=== PATIENT | female | born 1930 | race Hispanic/Latino ===

== ENCOUNTER 2016-11-12 07:04 | Emergency (ER) | payer MEDICARE ==
[2016-11-12 07:05] VITALS: BMI 19.5
[2016-11-12 07:28] VITALS: BP 138/92; PULSE 88; RESP 17; TEMP 98; O2SAT 96
--- NOTE | 2016-11-12 07:46 | ED PDOC ---
HPI: Trauma/Fall - HPI Time Seen by Provider: 11/12/16 07:11 Chief Complaint (Nursing): Abdominal Pain Chief Complaint (Provider): Fall History Per: Patient History/Exam Limitations: no limitations Injury Occurred (Timing): Just Before Arrival Location Of Injury: Left: Abdomen, Arm, Face Severity: Mild Additional Complaint(s): Patient is a 86 year old female who presents to ED for evaluation after a fall this morning. Patient states that she was going to the bathroom this morning, slipped and struck her chest. Denies head injury or LOC. States she noticed blood on her chest which prompted ED visit. Patient notes chronic neck pain secondary to her Melanoma treatments. Patient also taking ASA daily. No numbness, tingles, weakness, incontinence, head pain, vision changes, abd pain, back pain, leg pain. Past Medical History Reviewed: Historical Data, Nursing Documentation, Vital Signs Vital Signs: Last Vital Signs Temp 98 F 11/12/16 07:25 Pulse 88 11/12/16 07:25 Resp 17 11/12/16 07:25 BP 138/92 H 11/12/16 07:25 Pulse Ox 96 11/12/16 07:51 - Medical History PMH: Anemia, Arthritis, Back Problems, CAD, Gall Bladder Disease (GALLSTONES), HTN, Hypercholesterolemia, Hyperlipidemia, Osteoporosis, Pulmonary Embolism Denies: Chronic Kidney Disease - Surgical History Surgical History: No Surg Hx - Family History Family History: States: Unknown Family Hx - Living Arrangements Living Arrangements: With Family - Social History Current smoker - smoking cessation education provided: No Alcohol: None Drugs: Denies - Immunization History Hx Tetanus Toxoid Vaccination: No Hx Influenza Vaccination: No Hx Pneumococcal Vaccination: No - Home Medications Home Medications: Ambulatory Orders Medication Instructions Recorded Metoprolol Tartrate [Lopressor] 25 mg PO BID #30 tab 08/25/16 Simvastatin 20 mg PO DAILY #30 tablet 08/25/16 Esomeprazole Magnesium [Nexium] 40 mg PO DAILY 09/02/16 - Allergies Allergies/Adverse Reactions: Allergies Allergy/AdvReac Type Severity Reaction Status Date / Time clindamycin Allergy RASH Verified 01/05/16 20:03 risedronate sodium Allergy RASH Verified 01/05/16 20:03 [From Actonel] Review of Systems ROS Statement: Except As Marked, All Systems Reviewed And Found Negative Constitutional: Negative for: Weakness Eyes: Negative for: Vision Change Cardiovascular: Negative for: Chest Pain, Palpitations, Light Headedness Respiratory: Negative for: Shortness of Breath, Hemoptysis Gastrointestinal: Positive for: Abdominal Pain (LUQ). Negative for: Nausea, Vomiting Musculoskeletal: Positive for: Neck Pain (chronic ), Arm Pain (mild left). Negative for: Back Pain Neurological: Negative for: Weakness, Numbness, Change in Speech, Headache, Dizziness Physical Exam - Reviewed Nursing Documentation Reviewed: Yes Vital Signs Reviewed: Yes - Physical Exam Appears: Positive for: Non-toxic, No Acute Distress Head Exam: Positive for: ATRAUMATIC, NORMAL INSPECTION, NORMOCEPHALIC Skin: Positive for: Normal Color, Warm Eye Exam: Positive for: Normal appearance, EOMI, PERRL. Negative for: Periorbital swelling, Periorbital tenderness ENT: Positive for: Normal ENT Inspection (No loose teeth, (+) Abrasion to bottom of chin with eccymosis (-) tenderness ) Neck: Positive for: Normal, Trachea Midline Cardiovascular/Chest: Positive for: Regular Rate, Rhythm, Other (mild tender sternal with echymosis mild and abrasion). Negative for: Murmur Respiratory: Positive for: Normal Breath Sounds. Negative for: Decreased Breath Sounds, Respiratory Distress Gastrointestinal/Abdominal: Positive for: Soft, Tenderness (LUQ (-) eccymosis ) . Negative for: Distended, Guarding, Rebound Back: Positive for: Normal Inspection. Negative for: L CVA Tenderness, R CVA Tenderness, Vertebral Tenderness, Other ((-) hip tenderness ) Extremity: Positive for: Normal ROM (of all 4 extremities ), Other (Left arm: (+ )Distal doresum forearm with eccymsosi and mild tenderness. (+) Medial Forearm with abrasion, normal ROM of elbow, wrist and fingers. Right arm: (+) scattered eccymosis with no tenderness ). Negative for: Tenderness, Swelling Neurologic/Psych: Positive for: Alert, Oriented. Negative for: Motor/Sensory Deficits - ECG ECG: Positive for: Interpreted By Me, Viewed By Me ECG Rhythm: Positive for: Normal QRS, Normal ST Segment, Sinus Rhythm O2 Sat by Pulse Oximetry: 96 (RA) Pulse Ox Interpretation: Normal - Radiology X-Ray: Interpreted by Me, Viewed By Me X-Ray Interpretation: No Acute Disease - CT Scan/US ct Other Rad Studies (CT/US): Read By Radiologist Other Rad Interpretation: no acute - Progress ED Course And Treament: 1052: Stable. AAOx3. Tolerated PO. Fu with pcp. Ambulatory. Medical Decision Making Medical Decision Making: Time: 719 Initial impression: Fall Initial plan: -- CT-abdomen -- Ribs and PA chest -- Wrist Scribe Attestation: Documented by Nydia Asher acting as a scribe for Abiodun Pacheco MD MD Scribe Attestation: All medical record entries made by the Scribe were at my direction and personally dictated by me. I have reviewed the chart and agree that the record accurately reflects my personal performance of the history, physical exam, medical decision making, and the department course for this patient. I have also personally directed, reviewed, and agree with the discharge instructions and disposition. Disposition - Clinical Impression Clinical Impression: Abrasion, Chest wall pain - Patient ED Disposition Is Patient to be Admitted: No Counseled Patient/Family Regarding: Studies Performed, Diagnosis, Need For Followup - Disposition Referrals: [facility] [Outside] - 11/15/16 Disposition: Routine/Home Disposition Time: 11:02 Condition: STABLE Additional Instructions: Return if not better in 3 days. Instructions: Chest Wall Pain (ED), Abrasion (ED)
--- NOTE | 2016-11-12 09:57 | CT ---
PROCEDURE: CT Abdomen and Pelvis without intravenous contrast HISTORY: Trauma and left upper quadrant pain COMPARISON: None. TECHNIQUE: CT scan of the abdomen and pelvis was performed without administration of oral or intravenous contrast. Coronal and sagittal reformatted images were obtained. Radiation dose: Total exam DLP = 327.63 mGy-cm. This CT exam was performed using one or more of the following dose reduction techniques: Automated exposure control, adjustment of the mA and/or kV according to patient size, and/or use of iterative reconstruction technique. FINDINGS: LOWER THORAX: There is a 4 mm nodule in the right middle lobe. There is bibasilar subsegmental atelectasis. LIVER: The liver is normal in size. No evidence of focal lesion or biliary ductal dilatation. GALLBLADDER AND BILE DUCTS: The gallbladder is distended and there are large gallstones. PANCREAS: The pancreas is normal in size. There are no calcifications or ductal dilatation. SPLEEN: The spleen is normal in size. ADRENALS: Both adrenal glands are normal in size without discrete nodule. KIDNEYS AND URETERS: Both kidneys are normal in size. There are small nonobstructing stones in the left lower pole. There is no hydronephrosis. VASCULATURE: The aorta is tortuous and there are atherosclerotic aortoiliac calcifications. There is no aortic aneurysm. BOWEL: The small bowel loops are normal in caliber. There is large amount of stool scattered in the colon. APPENDIX: Normal appendix. PERITONEUM: No free fluid. No free air. LYMPH NODES: No enlarged lymph nodes. BLADDER: Normal in appearance. REPRODUCTIVE: The uterus is surgically absent. BONES: There is diffuse bone demineralization and multilevel degenerative changes in the spine. There is mild levoscoliosis in the lumbar spine. OTHER FINDINGS: None. IMPRESSION: No acute abdominal or pelvic abnormality. Examination is limited in the absence of intravenous and oral contrast, allowing for this no evidence of solid organ injury, hemoperitoneum or pneumoperitoneum.
--- NOTE | 2016-11-12 11:40 | RAD ---
PROCEDURE: Left Wrist Radiographs. HISTORY: Pain COMPARISON: None. FINDINGS: BONES: There is no acute displaced fracture or bone destruction. Bone alignment is normal. JOINTS: The joint spaces are preserved. The proximal and distal carpal rows are maintained. SOFT TISSUES: Normal. OTHER FINDINGS: None. IMPRESSION: No acute fracture or dislocation.
--- NOTE | 2016-11-12 13:11 | RAD ---
PROCEDURE: Radiographs of the Chest and Left Ribs. HISTORY: pain COMPARISON: None available. TECHNIQUE: Frontal radiograph of the chest and multiple oblique radiographs of the left ribs were obtained. FINDINGS: LEFT RIBS: No acute fracture or focal lesion visualized.There is diffuse bone demineralization. LUNGS: There are low lung volumes. There is bibasilar atelectasis/scarring. There is no focal consolidation. PLEURA: No pneumothorax or pleural fluid. CARDIOVASCULAR: Normal sized heart. No pulmonary vascular congestion. OTHER FINDINGS: None. IMPRESSION: No acute rib fracture. Bibasilar atelectasis/ scarring. No pneumothorax.
== END 2016-11-12 11:39 | disposition home or self-care (01) ==
LOC: H.ER 07:04
DX: R07.89 Other chest pain (principal); R10.12 Left upper quadrant pain; M25.532 Pain in left wrist; M54.2 Cervicalgia; W19.XXXA Unspecified fall, initial encounter; Y92.89 Other specified places as the place of occurrence of the external cause; E78.00 Pure hypercholesterolemia, unspecified; I10 Essential (primary) hypertension; Z79.82 Long term (current) use of aspirin; Z86.711 Personal history of pulmonary embolism